=== PATIENT | female | born 1970 | race Caucasian/White ===

== ENCOUNTER 2017-06-25 00:10 | Emergency (ER) | payer BC ==
[~2017-06-25] VITALS: Ht 157.5 cm; Wt 100.0 kg
[~2017-06-25 00:10] MED LIST: IBUPROFEN800 MG PO; NIFEDIPINE ER60 MG PO; PERCOCET 5/321 UDTAB PO; PRENATAL VITAMI1 TA5 PO; ZOFRAN 4MG T4 MG/TAB PO
[2017-06-25 00:16] VITALS: TEMP 97.2
[2017-06-25 00:38] LABS: BASO # 0.1 (0.0-0.2); BASO % 0.9 % (0.0-2.0); EOS # 0.5 (0.0-0.7); GRAN # 7.7 (1.4-6.5); GRAN % 64.1 % (42.2-75.2); HEMOGLOBIN 12.1 g/dl (12.5-16.0); LYMPH # 2.6 (1.2-3.4); LYMPH % 21.7 % (20.0-51.0); MEAN CELL VOLUME 86 fl (80.0-100.0); MEAN CORPUSCULAR HEMOGLOBIN 30 pg (27.0-31.0); MEAN CORPUSCULAR HGB CONC 35 g/dl (33.0-37.0); MEAN PLATELET VOLUME 10.6 fl (7.4-10.4); MONO # 1.1 (0.1-0.6); MONO % 8.9 % (1.7-9.3); PLATELET COUNT 274 K/mm3 (130-400); RED BLOOD COUNT 4.07 M/mm3 (4.10-5.30); REDCELL DISTRIBUTION WIDTH-CV 12.1 % (11.5-14.5)
[2017-06-25 00:41] LABS: HEMATOCRIT 35.1 % (37.0-47.0)
[2017-06-25] MEDS ORDERED: MULTI VITAMINS1 TAB PO (00:42)
[2017-06-25] MEDS ORDERED: LEXAPRO 10MG10 MG PO (00:43)
[2017-06-25] MEDS ORDERED: ZOCOR 20MG20 MG PO (00:43)
[2017-06-25] MEDS ORDERED: PROVENTIL0.09 MG/A1 IH (00:44)
[2017-06-25] MEDS ORDERED: ASMANEX TW0.22 MG/A1 IH (00:44)
[2017-06-25] MEDS ORDERED: VASOTEC20 MG PO (00:45)
[2017-06-25 00:48] LABS: ALANINE AMINOTRANSFERASE 52 U/L (9-52); ALBUMIN 3.8 gm/dL (3.5-5.0); ALKALINE PHOSPHATASE 87 U/L (50-136); ANION GAP 14 mmol/L (7-16); AST,SGOT 25 U/L (15-37); BILIRUBIN,TOTAL 0.4 mg/dL (0.0-1.0); BLOOD UREA NITROGEN 20 mg/dL (7-17); CALCIUM 9.2 mg/dL (8.4-10.2); CARBON DIOXIDE 22 mmol/L (22-30); CHLORIDE 103 mmol/L (98-107); CREATININE, serum 0.87 mg/dL (0.52-1.25); GLUCOSE 109 mg/dL (74-106); POTASSIUM 3.8 mmol/L (3.4-5.0); SODIUM 139 mmol/L (137-145); TOTAL PROTEIN 7.4 gm/dL (6.4-8.2)
[2017-06-25 01:24] LABS: TROPONIN-I < 0.012 ng/mL (0.000-0.034)
[2017-06-25 01:25] LABS: LIPASE 188 U/L (23-300)
[2017-06-25 01:45] LABS: COLLECTION METHOD CLEAN CATCH
[2017-06-25] MEDS ORDERED: NEXIUM 40MG40 MG PO (01:47)
[2017-06-25] MEDS ORDERED: CARAFATE 1GM1 G PO (01:47)
[2017-06-25 01:53] LABS: PH 5 (5-8); SQUAMOUS EPITHELIAL 0-2 /hpf; URINE APPEARANCE Clear; URINE BACTERIA Rare /hpf; URINE BILIRUBIN Negative (NEGATIVE); URINE BLOOD Negative (NEGATIVE); URINE COLOR Straw; URINE GLUCOSE Negative (NEGATIVE); URINE KETONE Negative (NEGATIVE); URINE LEUKOCYTE ESTERASE Negative (NEGATIVE); URINE NITRATE Negative (NEGATIVE); URINE PROTEIN(semi-quant) Negative (NEGATIVE); URINE RBC 0-2 /hpf; URINE UROBILINOGEN Negative (NEGATIVE)
[2017-06-25 03:42] VITALS: BP 127/66; PULSE 67
== END 2017-06-25 03:41 | disposition home or self-care (01) ==
LOC: COL.ER 00:10
PROVIDERS: Emergency Medicine
DX: R07.89 Other chest pain (principal); I10 Essential (primary) hypertension; E78.5 Hyperlipidemia, unspecified; Z90.89 Acquired absence of other organs; Z98.890 Other specified postprocedural states
CPT/HCPCS: C9113; J7030

== ENCOUNTER 2023-02-11 15:47 | Outpatient (CLI) | payer BC ==
[~2023-02-11 15:47] MED LIST changes: +ASMANEX TW0.22 MG/A1 IH; +ATIVAN 0.50.5 MG/TAB PO; +CARAFATE 1GM1 G PO; +COMPAZINE 110 MG/TAB PO; +DECADRON 4MG TAB4 MG PO; +LEXAPRO 10MG10 MG PO; +LOMOTIL 0.025 M1 TAB PO; +MULTI VITAMINS1 TAB PO; +NEXIUM 40MG40 MG PO; +PRILOSEC 20MG20 MG PO; +PROVENTIL0.09 MG/A1 IH; +TRANSDERM-0.5 MG/21 TD; +VALIUM 5MG T5 MG/TAB PO; +VASOTEC20 MG PO; +ZOCOR 20MG20 MG PO; +ZYRTEC 10MG10 MG PO
[2023-02-11 16:12] VITALS: BP 114/60; PULSE 105; TEMP 98.9
--- NOTE | 2023-02-11 18:05 | NUR ---
PT TOLERATED IV INFUSION WELL. PT WAS ACCOMPANIED TO EXIT BY AND DAUGHTER AND PT'S PORTS WAS HEPARINIZED AND DEACCESSED. PT'S VS REMAINED WITHIN NORMAL LIMITS AND PT REMAINED FREE FROM ACUTE CONCERNS AND COMPLAINTS UPON DISCHARGE.
== END 2023-02-11 18:11 | disposition home or self-care (01) ==
LOC: EUO 15:47
DX: C50.312 Malignant neoplasm of lower-inner quadrant of left female breast (principal)
CPT/HCPCS: J1644; J7030

== ENCOUNTER 2023-03-05 09:53 | Outpatient (CLI) | payer BC ==
[~2023-03-05] VITALS: Ht 157.5 cm; Wt 102.6 kg
[2023-03-05 10:15] VITALS: BP 104/52; PULSE 95
[2023-03-05 10:17] VITALS: BP 90/57; PULSE 100
--- NOTE | 2023-03-05 11:47 | NUR ---
prior to starting infusion, pt blood pressure reading was hypotensive at 90/57. one hour into infusion, bp was repeated and new bp was 104/52. Dr. Harper's office was contacted by this RN at [phone] Dr Harper ordered another bolus of fluid to run over two hours to help with dehydration and hypotension.
[2023-03-05 13:15] VITALS: BP 130/56; PULSE 95
--- NOTE | 2023-03-05 13:35 | NUR ---
pt tolerated two units of fluids well. bp increased back into the pt's normal range prior to discharge, last bp was 130/56. pt assisted to main lobby via wheelchair and ports was heparinized and deaccessed. pt free from acute concerns and complaints at time of discharge.
== END 2023-03-05 13:42 | disposition home or self-care (01) ==
LOC: EUO 09:53
DX: C50.312 Malignant neoplasm of lower-inner quadrant of left female breast (principal)
CPT/HCPCS: J1644; J7030

== ENCOUNTER 2023-03-10 11:27 | Emergency (ER) | payer BC ==
[~2023-03-10] VITALS: Ht 160 cm; Wt 103.2 kg
[2023-03-10 11:33] VITALS: TEMP 98.5
[2023-03-10 12:45] LABS: BASO # 0.1 K/mm3 (0.0-0.2); GRAN # 4.5 K/mm3 (1.4-6.5); LYMPH # 0.6 K/mm3 (1.2-3.4); LYMPH % 10.1 % (20.0-51.0); MEAN CELL VOLUME 93 fl (80.0-100.0); MEAN CORPUSCULAR HGB CONC 33 g/dl (33.0-37.0); MEAN PLATELET VOLUME 9.5 fl (7.4-10.4); MONO # 0.7 K/mm3 (0.1-0.6); MONO % 11.7 % (1.7-9.3); PLATELET COUNT 124 K/mm3 (130-400); RED BLOOD COUNT 2.47 M/mm3 (4.10-5.30); REDCELL DISTRIBUTION WIDTH-CV 15.7 % (11.5-14.5)
[2023-03-10 12:49] LABS: HEMOGLOBIN 7.5 g/dl (12.5-16.0); MEAN CORPUSCULAR HEMOGLOBIN 30 pg (27-31)
[2023-03-10 13:14] LABS: ALBUMIN 2.7 gm/dL (3.5-5.0); BILIRUBIN,TOTAL 0.6 mg/dL (0.2-1.2); CALCIUM 8.9 mg/dL (8.4-10.2); CREATININE, serum 0.92 mg/dL (0.57-1.11); POTASSIUM 3.6 mmol/L (3.5-4.5); TOTAL PROTEIN 5.9 gm/dL (6.2-8.1)
[2023-03-10 14:21] LABS: COLLECTION METHOD CLEAN CATCH
[2023-03-10 14:51] LABS: URINE APPEARANCE Hazy (CLEAR/HAZY); URINE COLOR Amber (YELLOW)
[2023-03-10 14:52] LABS: PH 5.5 (5.0-8.5); URINE BLOOD Negative (NEGATIVE); URINE GLUCOSE Negative (NEGATIVE); URINE KETONE 4+ (NEGATIVE); URINE NITRATE Negative (NEGATIVE); URINE PROTEIN(semi-quant) 2+ (NEGATIVE); URINE UROBILINOGEN 0.2 E.U/dL (0.2-1.0)
[2023-03-10 15:33] LABS: MUCOUS Present (NOT PRESENT); URINE BACTERIA Moderate /hpf (NONE SEEN); URINE RBC 0-2 /hpf (0-2)
[2023-03-10] MEDS ORDERED: PHENERGAN 25 TA25 MG PO (15:36)
[2023-03-10 16:07] VITALS: BP 157/74; PULSE 83
[2023-03-10] MEDS ORDERED: CEFTIN500 MG PO (16:22)
== END 2023-03-10 16:11 | disposition home or self-care (01) ==
LOC: COL.ER 11:27
PROVIDERS: Nurse Practitioner
DX: E86.0 Dehydration (principal); D64.9 Anemia, unspecified; N39.0 Urinary tract infection, site not specified; R11.2 Nausea with vomiting, unspecified
CPT/HCPCS: J1644; J2765; J7030

== ENCOUNTER 2024-01-17 11:30 | Emergency (ER) | payer BC ==
[~2024-01-17] VITALS: Ht 160 cm; Wt 108.2 kg
[~2024-01-17 11:30] MED LIST changes: +CEFTIN500 MG PO; +PHENERGAN 25 TA25 MG PO
[2024-01-17 11:41] VITALS: TEMP 97.8
[2024-01-17] MEDS ORDERED: CEPHALEXIN500 M1 PO (13:24)
[2024-01-17] MEDS ORDERED: BACTROBAN 22GM22 GM TP (13:24)
[2024-01-17 13:37] VITALS: BP 116/71; PULSE 64
== END 2024-01-17 13:37 | disposition home or self-care (01) ==
LOC: COL.ER 11:30
DX: S20.122A Blister (nonthermal) of breast, left breast, initial encounter (principal); X58.XXXA Exposure to other specified factors, initial encounter